=== PATIENT | female | born 1980 | race Hispanic/Latino ===

== ENCOUNTER 2017-11-10 04:45 | Inpatient (IN) | payer BC ==
[2017-11-10 05:07] VITALS: BMI 24.9
[2017-11-10] MEDS: Lactated Ringer's 1,000 ML IV SCH ×4 (05:15→13:15)
[2017-11-10] MEDS ORDERED: Oxytocin 30 units/LR 500ML 30 U/500 ML BAG IV ONE (05:19)
[2017-11-10 05:29] LABS: BASO # 0.1 K/uL (0.0-0.2); BASO % 1.4 % (0.0-2.0); EOS # 0.1 K/uL (0.0-0.7); LYMPH % 20.5 % (20.0-40.0); MEAN CELL VOLUME 96.3 fl (81.0-99.0); MEAN CORPUSCULAR HEMOGLOBIN 32.5 pg (27.0-31.0); MEAN CORPUSCULAR HGB CONC 33.8 g/dL (33.0-37.0); MEAN PLATELET VOLUME 11.1 fl (7.2-11.7); MONO % 10.5 % (0.0-10.0); NEUT # 6.5 K/uL (1.8-7.0); NEUT % 66.6 % (50.0-75.0); NRBC % 0.1 % (0.0-0.0); RBC 3.99 Mil/uL (3.80-5.20); RED CELL DISTRIBUTION WIDTH 14.2 % (11.5-14.5); WHITE BLOOD COUNT 9.8 K/uL (4.8-10.8)
[2017-11-10] MEDS ORDERED: fentaNYL 250 MCG, Bupivacaine HCl 0.5% 31.25 ML in Sodium Chloride 0.9% 88.75 ML IV ONE (05:42)
[2017-11-10] MEDS ORDERED: Lidocaine 2% Inj (20ml) ONE (06:17)
[2017-11-10] MEDS ORDERED: Lidocaine 2% PF (10 ml) Amp ONE (06:19)
[2017-11-10 06:44] VITALS: TEMP 97.9
[2017-11-10] MEDS ORDERED: Midazolam 2 MG/2 ML VIAL ONE (13:39)
--- NOTE | 2017-11-10 14:30 | OBDS ---
DELIVERY PERSONNEL Delivery Doctor: Kings Medley MD Steel Rule Inspector: Margie Olmedo RN MATERNAL INFORMATION Delivery Anesthesia: Epidural Medications in Delivery: Pitocin Estimated Blood Loss (ml): 200 Placenta Cultured: No RN Comments: of a viable babygirl at 13:16 with a compound presentation of Provider Comments: Delivery Note IP and PP DX: 39.6wk preg; labor Procedure: ; Midline episiotomy and repair w/ 3-0 polysorb Ob: niki whitfield findings: viable female in compound presentation w/ LUE; 9_9; wt 3655g. path: none cord blood collected for storage for pt neon remained in br w/ pt. LABOR SUMMARY EDC: 11/11/2017 00:00 No. Babies in Womb: 1 LABOR INFORMATION Group B Beta Strep: Negative MEMBRANES Membranes Rupture Method: Artificial Rupture of Membranes: 11/10/2017 08:25 Length of Rupture (hrs): 4.85 Amniotic Fluid Color: Clear Amniotic Fluid Amount: Small Amniotic Fluid Odor: Normal STAGES OF LABOR Stage 3 hrs: 0 Stage 3 min: 9 VAGINAL DELIVERY Episiotomy: Median Laceration Extension: N/A Laceration Type: None Laceration Repair Note: Repair of midline episiotomy with 3-0 vicryl. Sponge Count Correct: Yes Sharps Count Correct: Yes Count Comment: lap count correct #5 sponge count correct #10 BABY A INFORMATION Delivery Date/Time: 11/10/2017 13:16 Method of Delivery: Vaginal Born in Route : No : N/A Forceps: N/A Vacuum Extraction: N/A Shoulder Dystocia : No SHOULDER DYSTOCIA BABY A Infant Delivery Date/Time: 11/10/2017 13:16 PRESENTATION/POSITION BABY A Presentation: Compound Cephalic Presentation: Vertex Vertex Position: Left Occipital Anterior Breech Presentation: N/A PLACENTA INFORMATION BABY A Placenta Delivery Time : 11/10/2017 13:25 Placenta Method of Delivery: Spontaneous Placenta Status: Delivered SCORES BABY A Heart Rate 1 min: >100 bpm Resp Effort 1 min: Good Cry Reflex Irritability 1 min: Cough or Sneeze or Pulls Away Muscle Tone 1 min: Active Motion Color 1 min: Body [place], Extremities Blue Resuscitation Effort 1 min: N/A SCORE 1 MIN: 9 Heart Rate 5 min: >100 bpm Resp Effort 5 min: Good Cry Reflex Irritability 5 min: Cough or Sneeze or Pulls Away Muscle Tone 5 min: Active Motion Color 5 min: Body [place], Extremities Blue Resuscitation Effort 5 min: N/A SCORE 5 MIN: 9 INFANT INFORMATION BABY A Gestational Age at Delivery: 39.0 Gestational Status: Term Outcome : Liveborn Infant Condition : Stable Infant Sex: Female IDENTIFICATION/MEDS BABY A ID Band Location: Right Leg; Right Arm WEIGHT/LENGTH BABY A Infant Birthweight (gms): 3655 Infant Weight (lb): 8 Infant Weight (oz): 1 Length Inches: 20.00 Infant Length cms: 50.8 CORD INFORMATION BABY A No. Cord Vessels: 3 Nuchal Cord : N/A Cord Blood Taken: Yes Infant Suction: Mouth; Nose ASSESSMENT BABY A Infant Complications Other: compound presentation of left upper extremities Physical Findings at Delivery: Within Normal Limits Infant Respirations: Appears Normal Twister Tender Paper/ALS Called : No Infant Care By: Dr Fuentes Transferred To: Nursery
[2017-11-10] MEDS ORDERED: Benzocaine/Menthol SPRAY ONE (15:59)
[2017-11-10] MEDS ORDERED: Oxycodone/Acetaminophen 5/325 mg Tab PO PRN ×2 (16:02→19:40)
[2017-11-11 06:31] LABS: BASO # 0.1 K/uL (0.0-0.2); BASO % 0.7 % (0.0-2.0); EOS % 0.2 % (0.0-4.0); HEMOGLOBIN 11.3 g/dL (12.0-16.0); LYMPH # 2.3 K/uL (1.0-4.3); LYMPH % 13.5 % (20.0-40.0); MEAN CELL VOLUME 97.3 fl (81.0-99.0); MEAN CORPUSCULAR HEMOGLOBIN 32.5 pg (27.0-31.0); MEAN CORPUSCULAR HGB CONC 33.4 g/dL (33.0-37.0); MEAN PLATELET VOLUME 11.4 fl (7.2-11.7); MONO # 1.4 K/uL (0.0-0.8); NEUT # 13.3 K/uL (1.8-7.0); NEUT % 77.6 % (50.0-75.0); RBC 3.48 Mil/uL (3.80-5.20); RED CELL DISTRIBUTION WIDTH 14.5 % (11.5-14.5); WHITE BLOOD COUNT 17.1 K/uL (4.8-10.8)
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
--- NOTE | 2017-11-11 20:15 | OBDCSUM ---
Datetime: 11/11/2017 20:05 Discharged to, Provider: Home Follow up at, Provider: [facility] Disch Instr Activity: Normal activity Disch Instr Diet: Regular Discharge Instructions, Provider: Routine instructions given Discharge Diagnosis, Provider: Term Delivered Follow up in weeks, Provider: 6 weeks Disch Referrals: None Contraception discussed, Prov: Yes
[2017-11-12 01:54] VITALS: BP 108/72; PULSE 119; RESP 20; O2SAT 99
== END 2017-11-11 21:00 | disposition home or self-care (01) | DRG 775 ==
LOC: H.EROB2 04:45 → H.L&D 05:10 → H.OB/GYN 16:23
PROVIDERS: ADMIT Obstetrics & Gynecology Gynecology; ATTEND Obstetrics & Gynecology Gynecology
PROC: 0W8NXZZ Division of Female Perineum, External Approach (ICD-10-PCS; principal; 2017-11-10)
PROC: 10E0XZZ Delivery of Products of Conception, External Approach (ICD-10-PCS; 2017-11-10)
PROC: 10907ZC Drainage of Amniotic Fluid, Therapeutic from Products of Conception, Via Natural or Artificial Opening (ICD-10-PCS; 2017-11-10)
PROC: 4A1HXCZ Monitoring of Products of Conception, Cardiac Rate, External Approach (ICD-10-PCS; 2017-11-10)
DX: O32.6XX0 Maternal care for compound presentation, not applicable or unspecified (principal); Z37.0 Single live birth; Z3A.39 39 weeks gestation of pregnancy; Z88.0 Allergy status to penicillin

== ENCOUNTER 2017-11-15 11:46 | Emergency (ER) | payer BC ==
[2017-11-15 11:59] VITALS: RESP 18; TEMP 97.7
[2017-11-15 12:00] VITALS: BMI 21.1
[2017-11-15] MEDS ORDERED: Sodium Chloride 0.9% 1,000 ML IV STA ×2 (13:00→20:51)
--- NOTE | 2017-11-15 13:02 | ED PDOC ---
HPI: General Adult Time Seen by Provider: 11/15/17 12:40 Chief Complaint (Provider): Headache History Per: Patient History/Exam Limitations: no limitations Onset/Duration Of Symptoms: Days (Friday) Current Symptoms Are (Timing): Still Present Additional Complaint(s): Pt. with diffuse headache since delivering baby Friday here. Pt. tried motrin and meds given by obgyn which help and then pain returns. Has pain to the left and right of neck but only after suddenly moving 1 day this past week. No numbness, tingles, weakness, dizziness. No abd pain, chest pain, dyspnea, facial issues. No fever. Seen by OBGYN and then sent in today to the ER. Had epidural during and was difficult per pt. Past Medical History Reviewed: Nursing Documentation, Vital Signs Vital Signs: Last Vital Signs Temp 97.7 F 11/15/17 11:58 Pulse 105 H 11/15/17 11:58 Resp 18 11/15/17 11:58 BP 128/88 11/15/17 11:58 Pulse Ox 97 11/15/17 14:24 - Medical History PMH: Denies: Depression, Diabetes, HTN - Surgical History Surgical History: No Surg Hx - Family History Family History: States: Unknown Family Hx - Living Arrangements Living Arrangements: With Family - Social History Alcohol: None Drugs: Denies - Home Medications Home Medications: Ambulatory Orders Medication Instructions Recorded Multivit/Folic Acid/I 1 tab PO DAILY 11/10/17 [] Ibuprofen [Motrin Tab] 600 mg PO Q6 PRN #20 tab 11/11/17 Ibuprofen [Motrin] 600 mg PO Q6H PRN #20 tab 11/11/17 - Allergies Allergies/Adverse Reactions: Allergies Allergy/AdvReac Type Severity Reaction Status Date / Time Penicillins Allergy Severe ANAPHYLAXIS Verified 11/10/17 05:09 Review of Systems ROS Statement: Except As Marked, All Systems Reviewed And Found Negative Musculoskeletal: Positive for: Neck Pain Neurological: Positive for: Headache Physical Exam - Reviewed Nursing Documentation Reviewed: Yes Vital Signs Reviewed: Yes - Physical Exam Appears: Positive for: Non-toxic, No Acute Distress Head Exam: Positive for: ATRAUMATIC, NORMAL INSPECTION, NORMOCEPHALIC Skin: Positive for: Normal Color, Warm, DRY Eye Exam: Positive for: EOMI, Normal appearance, PERRL ENT: Positive for: Normal ENT Inspection Neck: Positive for: Normal, Painless ROM, Supple, Trachea Midline Cardiovascular/Chest: Positive for: Regular Rate, Rhythm Respiratory: Positive for: CNT, Normal Breath Sounds Gastrointestinal/Abdominal: Positive for: Normal Exam, Bowel Sounds, Soft. Negative for: Tenderness Back: Positive for: Normal Inspection. Negative for: L CVA Tenderness, R CVA Tenderness Extremity: Positive for: Normal ROM. Negative for: Tenderness, Pedal Edema Neurologic/Psych: Positive for: Alert, logistics associate II-XII, Oriented. Negative for: Motor/Sensory Deficits, Aphasia, Facial Droop - Laboratory Results Result Diagrams: 11/15/17 13:59 - ECG O2 Sat by Pulse Oximetry: 97 Pulse Ox Interpretation: Normal - Progress ED Course And Treament: 1454: Stable. Dr. Cheek to take over care. Fu on ct read, blood work, and anesthesia. Disposition - Clinical Impression Clinical Impression: Head ache - Patient ED Disposition Is Patient to be Admitted: Yes Counseled Patient/Family Regarding: Studies Performed, Diagnosis - Disposition Disposition Time: 15:15 Condition: FAIR Patient Signed Over To: Cally Cheek
[2017-11-15 14:17] LABS: ALBUMIN 3.8 g/dL (3.5-5.0); ALT/SGPT 58 U/L (9-52); AST/SGOT 52 U/L (14-36); BLOOD UREA NITROGEN 12 mg/dl (7-17); CALCIUM 9.3 mg/dL (8.4-10.2); GFR AFRICAN-AMERICAN > 60; GFR NON-AFRICAN AMERICAN > 60
[2017-11-15 14:48] LABS: PROTHROMBIN TIME 10.9 Seconds (9.8-13.1)
[2017-11-15 14:49] LABS: PARTIAL THROMBOPLASTIN TIME 29.5 Seconds (25.6-37.1)
--- NOTE | 2017-11-15 15:10 | ED PDOC ---
- Laboratory Results Result Diagrams: 11/15/17 13:59 11/15/17 13:59 - ECG O2 Sat by Pulse Oximetry: 97 (RA) Pulse Ox Interpretation: Normal Medical Decision Making Medical Decision Making: Time: 1500 Patient is endorsed to provider by Dr. Keith Mohan MD. Pending blood work, CT results, and anesthesia consult. Accession No. : [id number] Patient Name / ID : ZAIN DE JESUS / [id number] Exam Date : 11/15/2017 13:36:37 ( Approved ) Study Comment : Sex / Age : F / 36Y Creator : Alfonso Ríos MD Dictator : Third Helper : Manager Training : Alfonso Ríos MD Approver2 : Report Date : 11/15/2017 15:09:22 My Comment : PROCEDURE: CT HEAD WITHOUT CONTRAST. HISTORY: headache COMPARISON: Comparison made with CT scan brain 03/22/2009 TECHNIQUE: Axial computed tomography images were obtained through the head/brain without intravenous contrast. Radiation dose: Total exam DLP = 934.84 mGy-cm. This CT exam was performed using one or more of the following dose reduction techniques: Automated exposure control, adjustment of the mA and/or kV according to patient size, and/or use of iterative reconstruction technique. FINDINGS: HEMORRHAGE: There appears to be a very thin left-sided hypodense extra-axial density that could represent a small subdural hygroma. The possibility of a tiny chronic subdural hematoma cannot be completely excluded. BRAIN: There is a very prominent appearing superior sagittal sinus which probably represents an anatomic variation however the possibility of sinus thrombosis cannot be completely excluded and if there is any concern, consider followup of pre and post-contrast MRI of the brain. . No evidence of large acute infarct. No evidence of significant atrophy. VENTRICLES: No obstructive hydrocephalus however the ventricles are somewhat diminutive ; rule out intracranial hypertension. CALVARIUM: Calvarium intact. PARANASAL SINUSES: Visualized paranasal sinuses well-developed and currently well-aerated. MASTOID AIR CELLS: Unremarkable as visualized. No inflammatory changes. OTHER FINDINGS: None. IMPRESSION: Suspect very tiny crescentic low-attenuation extra-axial density left cerebral hemisphere that is of uncertain etiology however the possibility of a small subdural hygroma or possibly a tiny chronic subdural hematoma not completely excluded. Patent. There is also a prominent the superior sagittal sinus which could represent an anatomic variation however rule out venous sinus thrombosis. . MRI of the brain recommended for further evaluation. Rule out intracranial hypertension. Findings discussed with Dr. Mohan 1505 hours with written down and read back verification DW Dr Auguste who strongly recommends MRI for further evaluation. Stat MRI ordered DW pt and findings and plan of care. Dr An Anesthesiology made aware for plan of care. Accession No. : [id number] Patient Name / ID : ZAIN DE JESUS / [id number] Exam Date : 11/15/2017 17:24:40 ( Approved ) Study Comment : Sex / Age : F / 36Y Creator : Philomena Velasco MD Dictator : Third Helper : Manager Training : Philomena Velasco MD Approver2 : Report Date : 11/15/2017 19:19:00 My Comment : [facility] Division of Radiology [address] [place] [address] Tel. no. Patient Name: NEAL PITTMAN Pt. Address: [address] [place] [address] Rec #: [id number] [place] [address]: Marques POLLARD,Keith Thompson Pt CELL Order Location: [facility] : 1980 Female Age: 36 Order #: [id number] Reason for exam: pain Magnetic Resonance Imaging BRAIN W WO CONTRAST Exam Date: 11/15/17 This imaging exam was performed at [facility] ADDENDUM Addendum created by Philomena Velasco MD on 11/15/2017 7:38:50 PM EDT Spoke with Dr Gleason 11/15/2017 7:21 PM EDT. EXAM: MR Head Without and With Intravenous Contrast CLINICAL HISTORY: 36 years old, female; Pain; Headache; Headache not specified; Patient HX: Pt with diffuse headache since delivering a baby last friday, TECHNIQUE: Magnetic resonance images of the head/brain without and with intravenous contrast in multiple planes. CONTRAST: 12 mL of OMNISCAN administered intravenously. COMPARISON: CT - HEAD W/O CONTRAST 2017-11-15 13:36 FINDINGS: Brain: Low-lying cerebellum/tonsillar ectopia noted. Prominence of the sagittal sinus and venous distention noted. The pituitary gland is enlarged in size. Increased prominence and increased signal of the dura best appreciated on axial T2 imaging. Dural enhancement noted. No evidence of sinus thrombosis. No mass. No acute hemorrhage. No acute infarct. Ventricles: No ventriculomegaly. Ventricles diminutive in size. Bones: No acute abnormality as visualized. Sinuses: No acute sinusitis. Mastoid air cells: No mastoid effusion. Orbits: No acute abnormality as visualized. IMPRESSION: Constellation of findings as above most consistent with intracranial hypotension. Initial report created on 11/15/2017 7:19:28 PM EDT EXAM: MR Head Without and With Intravenous Contrast CLINICAL HISTORY: 36 years old, female; Pain; Headache; Headache not specified; Patient HX: Pt with diffuse headache since delivering a baby last friday, TECHNIQUE: Magnetic resonance images of the head/brain without and with intravenous contrast in multiple planes. CONTRAST: 12 mL of OMNISCAN administered intravenously. COMPARISON: CT - HEAD W/O CONTRAST 2017-11-15 13:36 FINDINGS: Brain: Low-lying cerebellum/tonsillar ectopia noted. Prominence of the sagittal sinus and venous distention noted. The pituitary gland is enlarged in size. Increased prominence and increased signal of the dura best appreciated on axial T2 imaging. Dural enhancement noted. No mass. No acute hemorrhage. No acute infarct. Ventricles: No acute abnormality as visualized. No ventriculomegaly. Bones: No acute abnormality as visualized. Sinuses: No acute sinusitis. Mastoid air cells: No mastoid effusion. Orbits: No acute abnormality as visualized. IMPRESSION: Constellation of findings as above most consistent with intracranial hypotension. Addendum Dictated By: Philomena Velasco Addendum Dictated Date Time:11/15/17 Addendum Signed by:Philomena Velasco Addendum signed Date Time: 11/15/171937 Addendum Transcribed By: LAMONT Addendum Transcribed Date Time: 11/15/17 KALA/NOLVIA EXAM: MR Head Without and With Intravenous Contrast CLINICAL HISTORY: 36 years old, female; Pain; Headache; Headache not specified; Patient HX: Pt with diffuse headache since delivering a baby last friday, TECHNIQUE: Magnetic resonance images of the head/brain without and with intravenous contrast in multiple planes. CONTRAST: 12 mL of OMNISCAN administered intravenously. COMPARISON: CT - HEAD W/O CONTRAST 2017-11-15 13:36 FINDINGS: Brain: Low-lying cerebellum/tonsillar ectopia noted. Prominence of the sagittal sinus and venous distention noted. The pituitary gland is enlarged in size. Increased prominence and increased signal of the dura best appreciated on axial T2 imaging. Dural enhancement noted. No mass. No acute hemorrhage. No acute infarct. Ventricles: No acute abnormality as visualized. No ventriculomegaly. Bones: No acute abnormality as visualized. Sinuses: No acute sinusitis. Mastoid air cells: No mastoid effusion. Orbits: No acute abnormality as visualized. IMPRESSION: Constellation of findings as above most consistent with intracranial hypotension. Dictated By: Philomena Velasco MD Dictated Date/Time: 11/15/171918 Signed By: Philomena Velasco Date Signed: 1918 Transcribed By: LAMONT Transcribe Date/Time : 11/15/171918 KALA/NOLVIA DW pt and findings. Dr An in ER to perform blood patch at bedside 9p Pt feeling better. Eager to be discharged. Scribe Attestation: Documented by Naseem Carlton, acting as a scribe for Dr. Cally Cheek MD. Provider Scribe Attestation: All medical record entries made by the Scribe were at my direction and personally dictated by me. I have reviewed the chart and agree that the record accurately reflects my personal performance of the history, physical exam, medical decision making, and the department course for this patient. I have also personally directed, reviewed, and agree with the discharge instructions and disposition. Disposition - Clinical Impression Clinical Impression: Epidural anesthesia-induced headache during puerperium - POA Present On Arrival: None - Disposition Disposition: Routine/Home Disposition Time: 21:00 Condition: IMPROVED Additional Instructions: DRINK PLENTY OF HYDRATING FLUIDS AND REST. AVOID STRENUOUS ACTIVITY. FOLLOW UP WITH YOUR IN HOME NANNY EARLY NEXT WEEK. Instructions: Epidural Blood Patch (DC) Forms: [employer] (Telugu)
[2017-11-15 15:16] LABS: BASO # 0.1 K/uL (0.0-0.2); EOS # 0.2 K/uL (0.0-0.7); LYMPH # 2.9 K/uL (1.0-4.3); LYMPH % 24.1 % (20.0-40.0); MEAN CELL VOLUME 97.7 fl (81.0-99.0); MEAN CORPUSCULAR HEMOGLOBIN 32.9 pg (27.0-31.0); MEAN CORPUSCULAR HGB CONC 33.7 g/dL (33.0-37.0); MEAN PLATELET VOLUME 10.4 fl (7.2-11.7); MONO # 1.1 K/uL (0.0-0.8); MONO % 9.6 % (0.0-10.0); NEUT # 7.5 K/uL (1.8-7.0); NEUT % 63.3 % (50.0-75.0); RBC 4.31 Mil/uL (3.80-5.20); RED CELL DISTRIBUTION WIDTH 14.2 % (11.5-14.5); WHITE BLOOD COUNT 11.8 K/uL (4.8-10.8)
[2017-11-15 15:20] LABS: HEMOGLOBIN 14.2 g/dL (12.0-16.0)
--- NOTE | 2017-11-15 16:22 | CP.PCM.CON ---
History of Present Illness - History of Present Illness History of Present Illness: Patient complains of headache starting from front and sides going back to the occipital area. Constricting and persistent. Aggravated when standing and relieved when at rest. It started right after delivery last friday. She was given butalbital affording only temporary relief. Denies blurring of vision nor tinitus. states bilateral ear congestion. Past Patient History - Past Social History Alcohol: None Drugs: Denies - CARDIAC Hx Hypertension: No - PSYCHIATRIC Hx Depression: No - SURGICAL HISTORY Hx Surgeries: No - ANESTHESIA Hx Anesthesia: No Meds Allergies/Adverse Reactions: Allergies Allergy/AdvReac Type Severity Reaction Status Date / Time Penicillins Allergy Severe ANAPHYLAXIS Verified 11/10/17 05:09 Results - Vital Signs Recent Vital Signs: Last Vital Signs Temp 97.7 F 11/15/17 11:58 Pulse 105 H 11/15/17 11:58 Resp 18 11/15/17 11:58 BP 128/88 11/15/17 11:58 Pulse Ox 97 11/15/17 15:15 - Labs Result Diagrams: 11/15/17 13:59 11/15/17 13:59 Labs: Laboratory Results - last 24 hr 11/15/17 11/15/17 11/15/17 13:59 13:59 13:59 WBC 11.8 H RBC 4.31 Hgb 14.2 D Hct 42.1 MCV 97.7 MCH 32.9 H MCHC 33.7 RDW 14.2 Plt Count 282 D MPV 10.4 Neut % (Auto) 63.3 Lymph % (Auto) 24.1 [place] % (Auto) 9.6 Eos % (Auto) 2.0 Baso % (Auto) 1.0 Neut # (Auto) 7.5 H Lymph # (Auto) 2.9 [place] # (Auto) 1.1 H Eos # (Auto) 0.2 Baso # (Auto) 0.1 PT 10.9 INR 1.0 APTT 29.5 Sodium 143 Potassium 4.2 Chloride 108 H Carbon Dioxide 24 Anion Gap 15 BUN 12 Creatinine 0.4 L Est GFR ( Amer) > 60 Est GFR (Non-Af Amer) > 60 Random Glucose 84 Calcium 9.3 Total Bilirubin 0.5 AST 52 H ALT 58 H Alkaline Phosphatase 123 Total Protein 7.6 Albumin 3.8 Globulin 3.7 Albumin/Globulin Ratio 1.0 Assessment & Plan - Assessment and Plan (Free Text) Assessment: Sinus hadache vs postdural puncture headache Plan: will await result of workup Will consider epidural blood patch if sinus headache is ruled out. - Date & Time Date: 11/15/17 Time: 16:29
[2017-11-15] MEDS ORDERED: Gadodiamide 287 MG/ML VIAL (15ML) IV ONE (17:09)
--- NOTE | 2017-11-15 17:59 | CT ---
PROCEDURE: CT HEAD WITHOUT CONTRAST. HISTORY: headache COMPARISON: Comparison made with CT scan brain 03/22/2009 TECHNIQUE: Axial computed tomography images were obtained through the head/brain without intravenous contrast. Radiation dose: Total exam DLP = 934.84 mGy-cm. This CT exam was performed using one or more of the following dose reduction techniques: Automated exposure control, adjustment of the mA and/or kV according to patient size, and/or use of iterative reconstruction technique. FINDINGS: HEMORRHAGE: There appears to be a very thin left-sided hypodense extra-axial density that could represent a small subdural hygroma. The possibility of a tiny chronic subdural hematoma cannot be completely excluded. BRAIN: There is a very prominent appearing superior sagittal sinus which probably represents an anatomic variation however the possibility of sinus thrombosis cannot be completely excluded and if there is any concern, consider followup of pre and post-contrast MRI of the brain. . No evidence of large acute infarct. No evidence of significant atrophy. VENTRICLES: No obstructive hydrocephalus however the ventricles are somewhat diminutive ; rule out intracranial hypertension. CALVARIUM: Calvarium intact. PARANASAL SINUSES: Visualized paranasal sinuses well-developed and currently well-aerated. MASTOID AIR CELLS: Unremarkable as visualized. No inflammatory changes. OTHER FINDINGS: None. IMPRESSION: Suspect very tiny crescentic low-attenuation extra-axial density left cerebral hemisphere that is of uncertain etiology however the possibility of a small subdural hygroma or possibly a tiny chronic subdural hematoma not completely excluded. Patent. There is also a prominent the superior sagittal sinus which could represent an anatomic variation however rule out venous sinus thrombosis. . MRI of the brain recommended for further evaluation. Rule out intracranial hypertension. Findings discussed with Dr. Mohan 1505 hours with written down and read back verification
--- NOTE | 2017-11-15 19:19 | MRI ---
EXAM: MR Head Without and With Intravenous Contrast CLINICAL HISTORY: 36 years old, female; Pain; Headache; Headache not specified; Patient HX: Pt with diffuse headache since delivering a baby last sharron, TECHNIQUE: Magnetic resonance images of the head/brain without and with intravenous contrast in multiple planes. CONTRAST: 12 mL of OMNISCAN administered intravenously. COMPARISON: CT - HEAD W/O CONTRAST 2017-11-15 13:36 FINDINGS: Brain: Low-lying cerebellum/tonsillar ectopia noted. Prominence of the sagittal sinus and venous distention noted. The pituitary gland is enlarged in size. Increased prominence and increased signal of the dura best appreciated on axial T2 imaging. Dural enhancement noted. No mass. No acute hemorrhage. No acute infarct. Ventricles: No acute abnormality as visualized. No ventriculomegaly. Bones: No acute abnormality as visualized. Sinuses: No acute sinusitis. Mastoid air cells: No mastoid effusion. Orbits: No acute abnormality as visualized. IMPRESSION: Constellation of findings as above most consistent with intracranial hypotension.
--- NOTE | 2017-11-15 21:06 | CP.PCM.PN ---
Subjective - Date & Time of Evaluation Date of Evaluation: 11/15/17 Time of Evaluation: 20:00 - Subjective Subjective: Discussed with the patient risk and benefit of epidural blood patch. patient agrees with the procedure. Consent signed by the patient. All questions answered. Patient placed in sitting position. Lumbar area aseptically cleansed with betadine 3X and draped. Local anesthesia 1% lidocaine infiltrated to skin and subcutaneous tissue at the level of L3-L4. 17G touhy needle inserted using loss of resistance technique until the epidural space. 3ml of blood withdrawn and was injected through the epidural needle. Total of 12 ml was given until patient felt some relief and started to feel some pressure at her back. Needle withdrawn and bandage placed. There was no signs of CSF nor blood leaking through the epidural needle during the procedure. Patient tolerated the procedure well with stable vital signs. Patient was told to lay flat on her back for 60-90mins. Objective - Vital Signs/Intake and Output Vital Signs (last 24 hours): Temp Pulse Resp BP Pulse Ox 97.7 F 69 18 133/85 99 11/15/17 11:58 11/15/17 18:40 11/15/17 18:40 11/15/17 18:40 11/15/17 18:40 - Medications Medications: Current Medications Sodium Chloride (Sodium Chloride 0.9%) 1,000 mls @ 1,000 mls/hr IV .Q1H STA Stop: 11/15/17 21:50 - Labs Labs: 11/15/17 13:59 11/15/17 13:59 PT 10.9 Seconds (9.8-13.1) 11/15/17 13:59 INR 1.0 (0.9-1.2) 11/15/17 13:59 APTT 29.5 Seconds (25.6-37.1) 11/15/17 13:59 Assessment and Plan - Assessment and Plan (Free Text) Assessment: Post dural puncture headache, S/P Epidural blood patch Plan: Patient to lay flat for 60-90min to establish blood patch. Recommend to continue increase oral fluid intake especially if breast feeding. Will bolus 1L of IV fluid. Encourage caffeinated drinks during daytime only. Continue ibuprofen prn.
[2017-11-15 22:06] VITALS: O2SAT 97
[2017-11-15 22:11] VITALS: BP 124/83; PULSE 64
== END 2017-11-15 21:55 | disposition home or self-care (01) ==
LOC: H.ER 11:46
DX: R51 Headache (principal); Y84.4 Aspiration of fluid as the cause of abnormal reaction of the patient, or of later complication, without mention of misadventure at the time of the procedure; O90.89 Other complications of the puerperium, not elsewhere classified; G97.1 Other reaction to spinal and lumbar puncture
CPT/HCPCS: 70450; 70553; 80053; 85025; 85610; 85730; 96361; 96374; 99285; A9579; J2765; J7040